=== PATIENT | male | born 1995 | race Caucasian/White ===

== ENCOUNTER 2024-06-11 20:02 | Outpatient (REF) | payer MEDICAID, SELFPAY ==
--- NOTE | ~2024-06-11 | MR_ITS ---
EXAMINATION: MR LUMBAR SPINE WITHOUT CONTRAST CLINICAL INFORMATION: Low back pain. COMPARISON: None available. TECHNIQUE: MRI of the lumbar spine was obtained using routine sequences without contrast. FINDINGS: Last rib-bearing vertebra labeled T12. No bone marrow STIR signal abnormality. Grade 1 anterolisthesis L4-5 secondary to spondylolysis pars interarticularis. Multilevel disc desiccation L1-2 to L5-S1. Conus medullaris ends at inferior endplate of L1 with normal signal. T12-L1: No disc herniation. No neuroforamina stenosis. L1-2: Broad-based disc bulging. Facet joint hypertrophy. Reduced AP diameter of the thecal sac and neuroforamina. No compression upon neural elements. L2-3: Broad-based disc bulging. Facet joint hypertrophy. Reduced AP diameter of the thecal sac and the neural foramina. No compression upon neural elements. L3-4: Broad-based disc bulging. Facet joint hypertrophy. Reduced AP diameter of the thecal sac and the neural foramina. No compression upon neural elements. L4-5: Grade 1 anterolisthesis resulting in bilateral neuroforamina narrowing encroaching the L4 exiting nerve roots. No gross central spinal canal stenosis. L5-S1: Broad-based disc bulging. Facet joint hypertrophy. Bilateral neuroforamina narrowing left greater than the right side likely encroaching the left L5 exiting nerve roots. No prevertebral compartment hematoma, mass or fluid collection. MR/MR lumbar spine wo con IMPRESSION: Multilevel lumbar spondylosis L1-2 to L5-S1. Grade 1 anterolisthesis L4-5 secondary to spondylolysis pars interarticularis resulting in bilateral neuroforamina stenosis encroaching the exiting nerve roots. Left neuroforamina narrowing on a degenerative basis, L5-S1 encroaching the left L5 exiting nerve. Electronically signed by: Rayray Johnson MD 06/12/2024 07:23 AM EDT
== END 2024-06-11 20:03 | disposition home or self-care (01) ==
LOC: HO.MRI 20:02
PROVIDERS: PCP Internal Medicine; Visit Provider Internal Medicine
DX: M54.42 Lumbago with sciatica, left side (principal)
CPT/HCPCS: 72148

== ENCOUNTER → 2024-06-11 20:12 | Outpatient (BNV) | payer MEDICAID, SELFPAY | PROVIDERS: PCP Internal Medicine; Visit Provider Radiology Diagnostic Radiology | DX: M43.16 Spondylolisthesis, lumbar region (principal) | CPT/HCPCS: 72148 ==